=== PATIENT | female | born 1950 | race Caucasian/White ===

== ENCOUNTER → 2021-08-03 | Outpatient (CLI) | payer OTHER ==
[~2021-08-03] MED LIST: APAP W/CODEINE1 TA2 PO; CALCIUM-MAG-ZI1 EACH PO; HAIR, SKIN & N1 EAC2 PO; LIPITOR20 MG PO; MULTI VITAMIN1 EACH PO; PRINIVIL20 M1 PO; VITAMIN D350 MC3 PO
== END ==
LOC: LAB 07:45 → PAC 15:18
PROVIDERS: ATTEND Student in an Organized Health Care Education/Training Program
DX: Z01.812 Encounter for preprocedural laboratory examination (principal); Z20.822 Contact with and (suspected) exposure to COVID-19

== ENCOUNTER → 2021-08-05 | Outpatient (CLI) | payer OTHER ==
[~2021-08-05] VITALS: Ht 157.5 cm; Wt 74.8 kg
--- NOTE | 2021-08-09 12:15 | P ---
[facility] [place] [address] PROCEDURE REPORT Name: GIL GRIFFITHS Room #: REG [facility]#: [id number] Admission: 08/05/21 Attend Phys: Skip Rogel Discharge: Date of : 52 Report #: [id number] THIS REPORT FOR: cc: Fernando Woodard MD, Steven E. MD McElhinney, Christian C. MD ~ cc: Fernando Woodard MD DATE OF SERVICE: 08/05/2021 PROCEDURE PERFORMED: Colonoscopy. HISTORY OF PRESENT ILLNESS: The patient is a 70-year-old female who presents today for a screening colonoscopy. No previous history of endoscopy. She denies any symptoms. Bowel movements have been normal. No family history of colon cancer. DESCRIPTION OF PROCEDURE: The risks and benefits of the procedure were explained to the patient, those risks including but not limited to bleeding, perforation and the risk of sedation. She understood these risks and gave informed consent. Sedation was given using propofol per anesthesia. Next, a digital rectal exam was initially performed, which was normal. Next, using a standard Olympus colonoscope, the scope was placed in the patient's anus and advanced under direct vision to the cecum. The overall prep was excellent. The cecum and ileocecal valve were normal in appearance. The ascending and transverse colon were normal. Multiple diverticula were noted in the descending and sigmoid colon. No evidence of inflammation, otherwise normal. The rectal mucosa was normal. On retroflexion, no abnormalities were noted. The scope was then withdrawn and the procedure terminated. The patient tolerated the procedure well. IMPRESSION: 1. Left-sided diverticulosis. 2. Otherwise, normal colonoscopy. RECOMMENDATIONS: 1. High fiber diet. 2. Repeat colonoscopy in 10 years. Thank you for allowing me to participate in her care. <ELECTRONICALLY SIGNED> By: Skip Watson MD 08/09/21 1215 0823 [id number] Skip Watson MD /nt
== END | disposition home or self-care (01) ==
LOC: GI 06-04 13:30
PROVIDERS: ATTEND Specialist
DX: Z12.11 Encounter for screening for malignant neoplasm of colon (principal); K57.30 Diverticulosis of large intestine without perforation or abscess without bleeding; I10 Essential (primary) hypertension; E78.5 Hyperlipidemia, unspecified; Z98.890 Other specified postprocedural states; Z79.899 Other long term (current) drug therapy; Z87.891 Personal history of nicotine dependence
CPT/HCPCS: 62110; 62900